=== PATIENT | female | born 1945 | race Caucasian/White ===

== ENCOUNTER 2022-07-20 20:47 | Emergency (ER) | payer MEDICARE, BC ==
[2022-07-20] MEDS: Lidocaine 1% 5 ML VIAL INJECT ONE (21:34)
[2022-07-20] MEDS: Bacitracin/Neomycin/Polymyxin B Oint 0.9 GM U/D Packet TOP ONE (22:16)
== END 2022-07-20 21:55 | disposition home or self-care (01) ==
LOC: CC.ED 20:47
DX: S61.412A Laceration without foreign body of left hand, initial encounter (principal); Z88.1 Allergy status to other antibiotic agents; Z88.0 Allergy status to penicillin; Z88.8 Allergy status to other drugs, medicaments and biological substances; W26.8XXA Contact with other sharp object(s), not elsewhere classified, initial encounter
CPT/HCPCS: 12001; 99282; 99283

== ENCOUNTER 2023-04-08 22:17 | Inpatient (IN) | payer MEDICARE, BC ==
[2023-04-08] MEDS ORDERED: Acetaminophen 325 MG Tab PO ONE (22:39)
[2023-04-08] MEDS ORDERED: Ondansetron 4 MG/2 ML SDV IVPUSH STA (22:39)
[2023-04-08] MEDS ORDERED: Sodium Chloride 0.9% 1,000 ML IV STA (22:39)
[2023-04-08 23:05] LABS: BASOPHILS ABSOLUTE AUTO 0.01 10^3/uL (0.00-0.50); HEMATOCRIT 31.1 % (37.0-47.0); HEMOGLOBIN 10.9 g/dL (12.0-16.0); IMMATURE GRAN ABSOLUTE AUTO 0.11 10^3/uL (0.00-0.49); IMMATURE GRAN PERCENT AUTO 0.5 % (0.0-4.9); LYMPHOCYTES ABSOLUTE AUTO 0.85 10^3/uL (0.60-5.00); MEAN CORPUSCULAR HEMOGLOBIN 31.7 pg (27.0-32.0); MEAN CORPUSCULAR VOLUME 90.4 fL (83.0-97.0); MONOCYTES ABSOLUTE AUTO 2.15 10^3/uL (0.00-1.50); MONOCYTES PERCENT AUTO 10.2 % (0-10); NEUTROPHILS ABSOLUTE AUTO 18.01 x10^3/uL (1.80-8.00); NEUTROPHILS PERCENT AUTO 85.3 % (41-71); PLATELET COUNT,PLT 287 10^3/uL (150-400); RED BLOOD CELL COUNT 3.44 x10^6/uL (4.00-5.50)
[2023-04-08 23:28] LABS: WHITE BLOOD CELL COUNT,WBC 21.1 10^3/uL (4.0-11.0)
[2023-04-08 23:28] LABS: APPEARANCE,URINE CLEAR (CLEAR); BILIRUBIN,URINE NEGATIVE (NEGATIVE); COLOR,URINE YELLOW (YELLOW); GLUCOSE,URINE NEGATIVE (NEGATIVE); KETONES,URINE 40 mg/dL (NEGATIVE); LEUKOCYTE ESTERASE,URINE SMALL (NEGATIVE); NITRITE,URINE POSITIVE (NEGATIVE); OCCULT BLOOD,URINE MODERATE (NEGATIVE); PH,URINE 5.5 (4.5-8.0); PROTEIN,URINE 100 mg/dL (NEGATIVE); UROBILINOGEN,URINE 0.2 EU/dL (0.2-1.0)
[2023-04-08 23:33] LABS: BACTERIA,URINE OCCASIONAL /HPF (NOT SEEN); EPITHELIAL CELLS,URINE FEW /HPF (NOT SEEN); MUCUS,URINE OCCASIONAL /HPF (NOT SEEN); WBC,URINE 40-50 /HPF (0-5)
[2023-04-08] MEDS ORDERED: cefTRIAXone 2 GM Vial IVPUSH ONE (23:34)
[2023-04-08 23:44] LABS: ALBUMIN 2.8 g/dL (3.4-5.0); BILIRUBIN TOTAL 0.7 mg/dL (0.0-1.0); CALCIUM 8.5 mg/dL (8.4-10.1); CREATININE 1.1 mg/dL (0.6-1.0); EST CRCL DRUG DOSING (CG) 36.4 mL/min; MAGNESIUM 2.1 mg/dL (1.8-2.4); POTASSIUM,K 3.1 mEq/L (3.5-5.0); PROTEIN TOTAL,TP 6.7 g/dL (6.4-8.2)
[2023-04-08 23:46] LABS: C-REACTIVE PROTEIN 32.2 mg/dL (0.2-0.8)
[2023-04-08] MEDS ORDERED: Sodium Chloride 0.9% 750 ML IV STA (23:54)
[2023-04-08] MEDS ORDERED: Potassium Chloride 10 MEQ Tab.ER PO ONE (23:55)
[2023-04-09 00:04] LABS: TSH ULTRASENSITIVE 0.71 uIU/mL (0.36-5.60)
[2023-04-09] MEDS ORDERED: diphenhydrAMINE 50 MG/ML SDV IVPUSH PRN (00:44)
[2023-04-09] MEDS ORDERED: Ondansetron 4 MG Tab.DIS PO PRN (00:44)
[2023-04-09] MEDS ORDERED: Docusate Sodium 100 MG Cap PO PRN (00:44)
[2023-04-09] MEDS ORDERED: Polyethylene Glycol 3350 Powder 17 GM Packet PO PRN (00:44)
[2023-04-09] MEDS ORDERED: Ondansetron 4 MG/2 ML SDV IV PRN (00:44)
[2023-04-09] MEDS: Sodium Chloride 0.9% 1,000 ML IV SCH ×2 (03:46→13:44)
[2023-04-09] MEDS: Acetaminophen 325 MG Tab PO PRN ×3 (06:53→22:00)
[2023-04-09 07:26] LABS: BASOPHILS ABSOLUTE AUTO 0.02 10^3/uL (0.00-0.50); BASOPHILS PERCENT AUTO 0.1 % (0-1); HEMATOCRIT 30.8 % (37.0-47.0); HEMOGLOBIN 10.7 g/dL (12.0-16.0); IMMATURE GRAN ABSOLUTE AUTO 0.06 10^3/uL (0.00-0.49); IMMATURE GRAN PERCENT AUTO 0.3 % (0.0-4.9); LYMPHOCYTES ABSOLUTE AUTO 1.47 10^3/uL (0.60-5.00); LYMPHOCYTES PERCENT AUTO 7.7 % (24-44); MEAN CORPUSCULAR HEMOGLOBIN 31.8 pg (27.0-32.0); MEAN CORPUSCULAR HGB CONC 34.7 g/dL (32.0-36.0); MEAN CORPUSCULAR VOLUME 91.7 fL (83.0-97.0); MONOCYTES ABSOLUTE AUTO 1.91 10^3/uL (0.00-1.50); NEUTROPHILS ABSOLUTE AUTO 15.56 x10^3/uL (1.80-8.00); NEUTROPHILS PERCENT AUTO 81.9 % (41-71); PLATELET COUNT,PLT 275 10^3/uL (150-400); RED BLOOD CELL COUNT 3.36 x10^6/uL (4.00-5.50)
[2023-04-09] MEDS: Metoprolol Succinate 25 MG Tab.ER PO SCH (07:36)
[2023-04-09] MEDS: Hydrochlorothiazide 25 MG Tab PO SCH (07:36)
[2023-04-09 07:43] LABS: CALCIUM 8.3 mg/dL (8.4-10.1); CREATININE 1.1 mg/dL (0.6-1.0); EST CRCL DRUG DOSING (CG) 36.4 mL/min; POTASSIUM,K 3.9 mEq/L (3.5-5.0)
[2023-04-09] MEDS: Enoxaparin 40 MG/0.4 ML Syringe SUBCUT SCH (09:46)
[2023-04-09] MEDS: cefTRIAXone 1 GM Vial IVPUSH SCH ×2 (12:47→19:28)
[2023-04-09] MEDS ORDERED: Iopamidol 755 Mg/ML 100 ML Bottle IVPUSH ONE (17:29)
[2023-04-09] MEDS ORDERED: cefTRIAXone 1 GM Vial IVPUSH SCH (20:00)
[2023-04-10] MEDS: Sodium Chloride 0.9% 1,000 ML IV SCH (00:12)
[2023-04-10] MEDS: Acetaminophen 325 MG Tab PO PRN ×3 (03:54→13:25)
[2023-04-10 07:45] LABS: BASOPHILS ABSOLUTE AUTO 0.02 10^3/uL (0.00-0.50); BASOPHILS PERCENT AUTO 0.2 % (0-1); EOSINOPHILS ABSOLUTE AUTO 0.01 10^3/uL (0.00-1.50); EOSINOPHILS PERCENT AUTO 0.1 % (0-6); HEMATOCRIT 28.3 % (37.0-47.0); HEMOGLOBIN 9.8 g/dL (12.0-16.0); IMMATURE GRAN ABSOLUTE AUTO 0.04 10^3/uL (0.00-0.49); IMMATURE GRAN PERCENT AUTO 0.4 % (0.0-4.9); LYMPHOCYTES ABSOLUTE AUTO 1.38 10^3/uL (0.60-5.00); LYMPHOCYTES PERCENT AUTO 12.4 % (24-44); MEAN CORPUSCULAR HEMOGLOBIN 31.8 pg (27.0-32.0); MEAN CORPUSCULAR HGB CONC 34.6 g/dL (32.0-36.0); MEAN CORPUSCULAR VOLUME 91.9 fL (83.0-97.0); MONOCYTES ABSOLUTE AUTO 1.12 10^3/uL (0.00-1.50); NEUTROPHILS ABSOLUTE AUTO 8.59 x10^3/uL (1.80-8.00); NEUTROPHILS PERCENT AUTO 76.9 % (41-71); PLATELET COUNT,PLT 264 10^3/uL (150-400); RED BLOOD CELL COUNT 3.08 x10^6/uL (4.00-5.50); WHITE BLOOD CELL COUNT,WBC 11.2 10^3/uL (4.0-11.0)
[2023-04-10] MEDS: cefTRIAXone 1 GM Vial IVPUSH SCH ×2 (07:56→19:31)
[2023-04-10 08:18] LABS: CREATININE 0.9 mg/dL (0.6-1.0); EST CRCL DRUG DOSING (CG) 44.49 mL/min; MAGNESIUM 1.9 mg/dL (1.8-2.4); POTASSIUM,K 3.9 mEq/L (3.5-5.0)
[2023-04-10] MEDS: Metoprolol Succinate 25 MG Tab.ER PO SCH (09:55)
[2023-04-10] MEDS: Hydrochlorothiazide 25 MG Tab PO SCH (10:08)
[2023-04-10] MEDS: Enoxaparin 40 MG/0.4 ML Syringe SUBCUT SCH (10:08)
[2023-04-10] MEDS: Ketorolac 30 MG/ML SDV IVPUSH PRN ×2 (15:07→22:20)
[2023-04-11] MEDS: Acetaminophen 325 MG Tab PO PRN (00:50)
[2023-04-11 07:44] LABS: BASOPHILS ABSOLUTE AUTO 0.02 10^3/uL (0.00-0.50); BASOPHILS PERCENT AUTO 0.2 % (0-1); EOSINOPHILS ABSOLUTE AUTO 0.03 10^3/uL (0.00-1.50); EOSINOPHILS PERCENT AUTO 0.3 % (0-6); HEMATOCRIT 29.7 % (37.0-47.0); HEMOGLOBIN 10.4 g/dL (12.0-16.0); IMMATURE GRAN ABSOLUTE AUTO 0.04 10^3/uL (0.00-0.49); IMMATURE GRAN PERCENT AUTO 0.4 % (0.0-4.9); LYMPHOCYTES ABSOLUTE AUTO 1.34 10^3/uL (0.60-5.00); MEAN CORPUSCULAR HEMOGLOBIN 31.8 pg (27.0-32.0); MEAN CORPUSCULAR VOLUME 90.8 fL (83.0-97.0); MONOCYTES ABSOLUTE AUTO 0.83 10^3/uL (0.00-1.50); MONOCYTES PERCENT AUTO 9.3 % (0-10); NEUTROPHILS ABSOLUTE AUTO 6.65 x10^3/uL (1.80-8.00); NEUTROPHILS PERCENT AUTO 74.8 % (41-71); PLATELET COUNT,PLT 278 10^3/uL (150-400); RED BLOOD CELL COUNT 3.27 x10^6/uL (4.00-5.50); WHITE BLOOD CELL COUNT,WBC 8.9 10^3/uL (4.0-11.0)
[2023-04-11 07:56] LABS: CALCIUM 8.4 mg/dL (8.4-10.1); EST CRCL DRUG DOSING (CG) 40.04 mL/min
[2023-04-11] MEDS: cefTRIAXone 1 GM Vial IVPUSH SCH (08:24)
[2023-04-11] MEDS: Metoprolol Succinate 25 MG Tab.ER PO SCH (08:24)
[2023-04-11] MEDS: Hydrochlorothiazide 25 MG Tab PO SCH (09:50)
== END 2023-04-11 11:59 | disposition home or self-care (01) | DRG 872 ==
LOC: CC.ED 22:17 → CC.MS 04-09 00:05 → UNDOADMIN 04-09 00:30
PROVIDERS: ADMIT Nurse Practitioner; ATTEND Nurse Practitioner
DX: A41.51 Sepsis due to Escherichia coli [E. coli] (principal); A41.9 Sepsis, unspecified organism; N39.0 Urinary tract infection, site not specified; Z20.822 Contact with and (suspected) exposure to COVID-19; I10 Essential (primary) hypertension; N17.9 Acute kidney failure, unspecified; E86.0 Dehydration; Z96.649 Presence of unspecified artificial hip joint; Z79.899 Other long term (current) drug therapy; Z88.0 Allergy status to penicillin; Z88.8 Allergy status to other drugs, medicaments and biological substances
CPT/HCPCS: 36415; 74177; 80048; 80053; 81001; 83605; 83735; 84443; 84484; 85025; 85651; 85652; 86140; 87040; 87077; 87086; 87088; 87186; 87804; 93005; 93010; 96361; 96374; 96375; 99223; 99232; 99238; 99285-25; A9270-GY; J0696; J1885; J2405; J7030; Q9967; U0002

== ENCOUNTER 2024-04-02 15:02 | Inpatient (IN) | payer MEDICARE, BC ==
[2024-04-02 15:47] LABS: APPEARANCE,URINE SLIGHTLY CLOUDY (CLEAR); BILIRUBIN,URINE NEGATIVE (NEGATIVE); COLOR,URINE YELLOW (YELLOW); GLUCOSE,URINE NEGATIVE (NEGATIVE); KETONES,URINE NEGATIVE (NEGATIVE); LEUKOCYTE ESTERASE,URINE MODERATE (NEGATIVE); NITRITE,URINE NEGATIVE (NEGATIVE); OCCULT BLOOD,URINE MODERATE (NEGATIVE); PH,URINE 6.5 (4.5-8.0); PROTEIN,URINE 100 mg/dL (NEGATIVE); UROBILINOGEN,URINE 0.2 EU/dL (0.2-1.0)
[2024-04-02 16:00] LABS: BACTERIA,URINE FEW /HPF (NOT SEEN); RBC,URINE 50-75 /HPF (0-5); WBC,URINE 75-100 /HPF (0-5)
[2024-04-02 16:39] LABS: BASOPHILS ABSOLUTE AUTO 0.03 10^3/uL (0.00-0.50); BASOPHILS PERCENT AUTO 0.2 % (0-1); EOSINOPHILS ABSOLUTE AUTO 0.01 10^3/uL (0.00-1.50); EOSINOPHILS PERCENT AUTO 0.1 % (0-6); HEMATOCRIT 36.5 % (37.0-47.0); HEMOGLOBIN 12.6 g/dL (12.0-16.0); IMMATURE GRAN ABSOLUTE AUTO 0.04 10^3/uL (0.00-0.49); IMMATURE GRAN PERCENT AUTO 0.2 % (0.0-4.9); LYMPHOCYTES ABSOLUTE AUTO 0.73 10^3/uL (0.60-5.00); LYMPHOCYTES PERCENT AUTO 3.9 % (24-44); MEAN CORPUSCULAR HEMOGLOBIN 32.2 pg (27.0-32.0); MEAN CORPUSCULAR HGB CONC 34.5 g/dL (32.0-36.0); MEAN CORPUSCULAR VOLUME 93.4 fL (83.0-97.0); MONOCYTES ABSOLUTE AUTO 1.49 10^3/uL (0.00-1.50); NEUTROPHILS ABSOLUTE AUTO 16.39 x10^3/uL (1.80-8.00); NEUTROPHILS PERCENT AUTO 87.6 % (41-71); PLATELET COUNT,PLT 225 10^3/uL (150-400); RED BLOOD CELL COUNT 3.91 x10^6/uL (4.00-5.50); WHITE BLOOD CELL COUNT,WBC 18.7 10^3/uL (4.0-11.0)
[2024-04-02] MEDS: Sodium Chloride 0.9% 1,000 ML IV ONE (16:53)
[2024-04-02 16:54] LABS: ALBUMIN 3.4 g/dL (3.4-5.0); BILIRUBIN TOTAL 0.5 mg/dL (0.0-1.0); C-REACTIVE PROTEIN 13.31 mg/dL (<=0.50); CALCIUM 8.6 mg/dL (8.4-10.1); EST CRCL DRUG DOSING (CG) 39.39 mL/min; POTASSIUM,K 3.6 mEq/L (3.5-5.0); PROTEIN TOTAL,TP 7.1 g/dL (6.4-8.2)
[2024-04-02] MEDS: cefTRIAXone 2 GM Vial IVPUSH ONE (16:54)
[2024-04-02] MEDS: Ondansetron 4 MG/2 ML SDV IVPUSH PRN (16:55)
[2024-04-02] MEDS ORDERED: Polyethylene Glycol 3350 Powder 17 GM Packet PO PRN (17:00)
[2024-04-02] MEDS ORDERED: Ondansetron 4 MG Tab.DIS PO PRN (17:00)
[2024-04-02] MEDS ORDERED: Ondansetron 4 MG/2 ML SDV IV PRN (17:00)
[2024-04-02] MEDS ORDERED: Docusate Sodium 100 MG Cap PO PRN (17:00)
[2024-04-02] MEDS: Sodium Chloride 0.9% 1,000 ML IV SCH (18:16)
[2024-04-02] MEDS: Hydrochlorothiazide 25 MG Tab PO SCH (20:10)
[2024-04-02] MEDS: Calcium Carbonate/Vitamin D3 1250 MG-5 MCG Tab PO SCH (20:10)
[2024-04-02] MEDS: Metoprolol Succinate 25 MG Tab.ER PO SCH (20:10)
[2024-04-02] MEDS: Loratadine 10 MG Tab PO SCH (20:10)
[2024-04-03] MEDS: Acetaminophen 325 MG Tab PO PRN (05:30)
[2024-04-03] MEDS: Anastrozole 1 MG Tab PO SCH (07:35)
[2024-04-03 07:55] LABS: BASOPHILS ABSOLUTE AUTO 0.04 10^3/uL (0.00-0.50); BASOPHILS PERCENT AUTO 0.4 % (0-1); EOSINOPHILS ABSOLUTE AUTO 0.02 10^3/uL (0.00-1.50); EOSINOPHILS PERCENT AUTO 0.2 % (0-6); HEMATOCRIT 30.1 % (37.0-47.0); HEMOGLOBIN 10.2 g/dL (12.0-16.0); IMMATURE GRAN ABSOLUTE AUTO 0.01 10^3/uL (0.00-0.49); IMMATURE GRAN PERCENT AUTO 0.1 % (0.0-4.9); LYMPHOCYTES ABSOLUTE AUTO 0.87 10^3/uL (0.60-5.00); LYMPHOCYTES PERCENT AUTO 7.9 % (24-44); MEAN CORPUSCULAR HEMOGLOBIN 32.1 pg (27.0-32.0); MEAN CORPUSCULAR HGB CONC 33.9 g/dL (32.0-36.0); MEAN CORPUSCULAR VOLUME 94.7 fL (83.0-97.0); MONOCYTES PERCENT AUTO 10.8 % (0-10); NEUTROPHILS ABSOLUTE AUTO 8.94 x10^3/uL (1.80-8.00); NEUTROPHILS PERCENT AUTO 80.6 % (41-71); PLATELET COUNT,PLT 186 10^3/uL (150-400); RED BLOOD CELL COUNT 3.18 x10^6/uL (4.00-5.50); WHITE BLOOD CELL COUNT,WBC 11.1 10^3/uL (4.0-11.0)
[2024-04-03 08:06] LABS: CALCIUM 7.9 mg/dL (8.4-10.1); CREATININE 0.8 mg/dL (0.6-1.0); EST CRCL DRUG DOSING (CG) 49.24 mL/min; MAGNESIUM 1.8 mg/dL (1.8-2.4); POTASSIUM,K 3.1 mEq/L (3.5-5.0)
[2024-04-03] MEDS: Potassium Chloride 10 MEQ Tab.ER PO ONE (12:57)
[2024-04-03] MEDS: cefTRIAXone 1 GM Vial IVPUSH SCH (16:16)
[2024-04-04 07:23] LABS: BASOPHILS ABSOLUTE AUTO 0.03 10^3/uL (0.00-0.50); BASOPHILS PERCENT AUTO 0.4 % (0-1); EOSINOPHILS ABSOLUTE AUTO 0.08 10^3/uL (0.00-1.50); EOSINOPHILS PERCENT AUTO 1.2 % (0-6); HEMATOCRIT 34.3 % (37.0-47.0); HEMOGLOBIN 11.8 g/dL (12.0-16.0); IMMATURE GRAN ABSOLUTE AUTO 0.02 10^3/uL (0.00-0.49); IMMATURE GRAN PERCENT AUTO 0.3 % (0.0-4.9); LYMPHOCYTES ABSOLUTE AUTO 0.93 10^3/uL (0.60-5.00); LYMPHOCYTES PERCENT AUTO 13.4 % (24-44); MEAN CORPUSCULAR HEMOGLOBIN 32.3 pg (27.0-32.0); MEAN CORPUSCULAR HGB CONC 34.4 g/dL (32.0-36.0); MONOCYTES ABSOLUTE AUTO 0.82 10^3/uL (0.00-1.50); MONOCYTES PERCENT AUTO 11.8 % (0-10); NEUTROPHILS ABSOLUTE AUTO 5.07 x10^3/uL (1.80-8.00); NEUTROPHILS PERCENT AUTO 72.9 % (41-71); PLATELET COUNT,PLT 205 10^3/uL (150-400); RED BLOOD CELL COUNT 3.65 x10^6/uL (4.00-5.50)
[2024-04-04 07:33] LABS: CALCIUM 9.1 mg/dL (8.4-10.1); CREATININE 0.9 mg/dL (0.6-1.0); EST CRCL DRUG DOSING (CG) 43.77 mL/min; MAGNESIUM 1.6 mg/dL (1.8-2.4)
[2024-04-04] MEDS: Magnesium Oxide 400 MG Tab PO ONE (09:05)
[2024-04-04] MEDS: cefTRIAXone 1 GM Vial IVPUSH SCH (12:09)
== END 2024-04-04 13:15 | disposition home or self-care (01) | DRG 872 ==
LOC: CC.FCMC 15:02 → CC.LAB 15:02 → CC.MS 16:06 → UNDOADMIN 16:06 → CC.MS 17:00
PROVIDERS: ADMIT Nurse Practitioner; ATTEND Nurse Practitioner
DX: A41.51 Sepsis due to Escherichia coli [E. coli] (principal); N39.0 Urinary tract infection, site not specified; I10 Essential (primary) hypertension; D72.829 Elevated white blood cell count, unspecified; G89.29 Other chronic pain; R51.9 Headache, unspecified; Z88.1 Allergy status to other antibiotic agents; Z88.0 Allergy status to penicillin; Z88.8 Allergy status to other drugs, medicaments and biological substances; Z79.899 Other long term (current) drug therapy; Z98.49 Cataract extraction status, unspecified eye; Z96.649 Presence of unspecified artificial hip joint
CPT/HCPCS: 36415; 80048; 80053; 81001; 83605; 83735; 85025; 86140; 87040; 87086; 87088; 87186; A9270-GY; J0696; J2405; J7030